=== PATIENT | male | born 1995 | race Caucasian/White ===

== ENCOUNTER 2020-04-12 16:47 | Observation (INO) | payer BC, SELFPAY ==
[2020-04-12] VITALS (8 sets, daily range): BP systolic 120–138; BP diastolic 64–81; PULSE 62–114; RESP 12–20; TEMP 36.8–37.4; O2SAT 95–99; BMI 24.5; BMI 22.1
--- NOTE | 2020-04-12 17:51 | CT_ITS ---
STUDY: CT BRAIN WITHOUT CONTRAST REASON FOR EXAM: Male, 24 years old. SEIZURE TODAY, STILL UNABLE TO RESPOND TO STIMULI RADIATION DOSAGE (If Supplied By Facility): CTDIvol = ( 44.99 ) mGy, DLP = ( 762.36 ) mGycm TECHNIQUE: Transaxial CT imaging of the brain was performed without administration of intravenous contrast material. Individualized dose optimization techniques were used for this CT. COMPARISON: No relevant priors. FINDINGS: Normal soft tissue structures. Normal calvarium. Normal size ventricles and extra-axial spaces for the patient''s age. Normal white matter tracts of the cerebral hemispheres. Normal basal ganglia and thalami. Normal brainstem. Normal cerebellum. There is no intracranial hemorrhage. There are no findings of an acute ischemic infarction. Normal visualized paranasal sinuses. CT/Brain/Head without Contrast IMPRESSION: Normal unenhanced CT scan of the brain. Electronically Signed: Jonathan Donaldson MD at 18:29 EDT , Service support ,
[2020-04-12] MEDS: levETIRAcetam IV 1,000 MG/100 ML BAG 400 MG IV (17:55)
[2020-04-12] MEDS: LORazepam 2 MG/ML Syringe IV (17:56)
[2020-04-12] MEDS: DiphenhydrAMINE 50 MG/ML Syringe 25 MG IV (17:56)
[2020-04-12] MEDS: 0.9% Normal Saline 1,000 ML 1000 ML IV (17:56)
[2020-04-12 18:05] LABS: Absolute Lymphocyte Count 1.97 X10^3/uL (0.83-4.51); Absolute Neutrophil Count 9.7 X10^3/uL (2.0-7.7); Basophil# 0.04 X10^3/uL; Basophil% 0.3 % (0-1); Eosinophil# 0.04 X10^3/uL; Eosinophils% 0.3 % (0-5); Hematocrit 42.8 % (40-54); Hemoglobin 15.2 g/dL (13.0-16.5); Lymphocyte # 1.97 X10^3/ul (4.0); Lymphocyte % 15.4 % (19-41); Mean Corp Hgb Conc 35.5 g/dL (32-36); Mean Corpuscular Hgb 31.1 pg (27.0-32.0); Mean Corpuscular Volume 87.5 fL (80-94); Mean Platelet Vol. 9.9 fl (6.2-12.0); Monocyte# 1.05 X10^3/uL; Monocyte% 8.2 % (0-10); NRBC Flagged by Analyzer 0 % (0-5); Neutrophil # 9.69 X10^3/uL (2.7-7.7); Neutrophil % 75.6 % (47-70); Platelet Count 305 K/mm3 (150-450); RBC Distribution Width CV 11.9 % (11.6-14.6); RBC Distribution Width SD 37.8 fl (35.1-43.9); Red Blood Count 4.89 M/mm3 (4.6-6.2); White Blood Count 12.8 K/mm3 (4.4-11.0)
[2020-04-12 18:13] LABS: ALB/GLOB Ratio 1.6 RATIO (0.9-2.4); AST(SGOT) 21 U/L (15-37); Alanine Aminotransfer ALT/SGPT 34 U/L (16-61); Alkaline Phosphatase 75 U/L (45-117); Anion Gap 8 (5-15); BUN 13 mg/dL (7-18); BUN/Creat Ratio 11.9 RATIO (10-20); Calcium,Total 9.7 mg/dL (8.5-10.1); Chloride 109 mmol/L (98-107); Creatinine, Serum 1.09 mg/dL (0.70-1.30); EST Glomerular Filtration Rate 89 mL/min (>60); Est Glom Filt Rate - Afr Amer 107 mL/min (>60); Estimated Creatinine Clearance 115.69 ml/min; Globulin 3.1 g/dL (2.2-4.2); Glucose 95 mg/dL (74-106); Potassium 3.9 mmol/L (3.5-5.1); Prolactin 17.4 ng/mL; Protein, Total 8.1 g/dL (6.4-8.2); Sodium Level 142 mmol/L (136-145)
[2020-04-12 18:18] LABS: CPK Total, Creatine Kinase 286 U/L (39-308)
[2020-04-12 18:46] LABS: Lactic Acid 2.9 mmol/L (0.4-1.9)
--- NOTE | 2020-04-12 19:02 | ED.DCSUM_ITS ---
- ER Visit Summary Date of Service: 04/12/20 Chief Complaint: Possible seizure History of Present Illness: The patient is a 24 M who presents with possible seizure that occurred today. Patient was working outside when his coworkers noted he was having a seizure. Patient does not remember any of the events around the seizure. Patient was slow to respond. EMS states that the patient was nonverbal on their initial evaluation. Patient does admit to a generalized headache. Patient denies any recent fevers or chills. Patient admits to nausea but denies any vomiting. Patient admits to some neck pain but denies any back pain. Patient states he feels weak all over. Physical Examination: Vital signs are stable. Patient is afebrile. Patient is in no acute distress. Oral mucosa is pink and moist. There is no evidence of tongue biting. Neck is supple. Trachea is midline. There is no JVD. Heart was regular rate and rhythm. Lungs are clear and equal bilaterally. Abdomen is soft. Bowel sounds are normal. There is no tenderness. Cranial nerves II through XII are intact. There are no focal motor or sensory deficits. Extremities are intact. There is no calf tenderness or edema. Test Results: CT scan of the brain was obtained. There is no acute intracranial abnormality. CBC shows a slight leukocytosis of 12.8. Comprehensive metabolic profile was normal. Lactate was slightly elevated at 2.9. While the patient was having a seizure, a prolactin level was obtained and was at the upper limit of normal at 17.4. Emergency Department Course and Treatment: While here in the emergency departmen t patient had a generalized tonic-clonic seizure. Patient's arms and legs were shaking and then would slow down and then started shaking again. Family was at the bedside was able to hold his right arm down while his legs were still shaking. Patient was given Ativan, Benadryl, and Keppra. Patient stopped his seizure after approximately 4 to 5 minutes. Case was discussed with the hospitalist. He will admit the patient for observation. He requested that a urine drug screen be obtained. This was ordered. Patient and family understood and were agreeable with the plan. All questions were answered. Disposition: Admit to hospital Impression: New onset seizure This note was generated with CEL-[employer]ation software. It may contain incorrect words, spelling, and punctuation that were not noted in review of the chart prior to signing ED Disposition - Plan for ED Patient: Disposition: Acute Care Hospital [facility] Diagnosis: New onset seizure Referrals: Care Physician,No Primary [Primary Care Provider] -
--- NOTE | 2020-04-12 20:08 | PCM.HP.STD ---
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 Per report his coworkers observed him to be seizing on the ground at work and they called for help. The patient has no previous seizure history or brain trauma. In the emergency room he was observed to have a tonic-clonic seizure with duration of 4 to 5 minutes by the ER physician at which time a prolactin level was obtained. The patient was given Ativan, Keppra and Benadryl at that time and the seizure stopped. Laboratory studies reveal a white blood cell count of 12.8, hemoglobin 15.2, hematocrit 42.8, platelets 305, sodium 142, potassium 3.9, chloride 25, bicarb 8, BUN 13, creatinine 1.09, lactate elevated at 2.9, prolactin in the high end of normal at 17.4. The patient is afebrile and resting comfortably but is slow to respond to questions and therefore ER physician has requested admission for observation overnight. Past Medical History Allergies TIDE Allergy (Uncoded 04/12/20 16:53) Rash Home Medications: Ambulatory Orders Medication Instructions Recorded NK 04/12/20 Smoking Status: Never smoker - *Family History Maternal History Items: No pertinent history Review of Systems Constitutional: Denies: Chills, Fever, Weight Change HEENT: Denies: Head Aches, Sinus Congestion, Sinus Drainage Cardiovascular: Denies: Chest Pain, Palpitations Respiratory: Denies: Cough, Shortness of breath at rest, Sputum production Gastrointestinal: Denies: Abdominal Pain, Nausea, Vomiting Genitourinary: Denies: Dysuria Musculoskeletal: Denies: Joint Pain, Joint Tenderness Skin: Denies: Rash, Wounds Neurological: Reports: Numbness - bilat hands, Seizures. Denies: Focal weakness, Tingling Psychiatric: Denies: Anxiety, Depression, Homicidal Ideations, Suicidal Ideations Hematologic/ Lymphatic: Denies: Easy Bruising, Easy Bleeding VTE Information - Inpt Only VTE Present on Admission: No VTE Mechan Device Prophylaxis: None VTE Pharm Prophylaxis ordered?: Yes Patient Problems: Active and Suspected Problems New onset seizure (Acute) New onset seizure (Acute) - Physical Exam Vitals/I&O's: Vital Signs Temp Pulse Resp BP Pulse Ox 98.3 F 98 12 138/67 H 95 04/12/20 16:49 04/12/20 19:16 04/12/20 19:16 04/12/20 19:16 04/12/20 19:16 Oxygen Delivery Method Room Air Weight: 180 lb 12.465 oz Body Mass Index (BMI) 24.5 Intake and Output for Last 24 Hours 04/10/20 04/11/20 04/12/20 23:59 23:59 23:59 Intake Total 1066.67 / 1066.67 Balance 1066.67 / 1066.67 General: Alert, Cooperative, Confused HEENT: Atraumatic, EOMI, Normocephalic, Sluggish Pupils Neck: Supple Lungs: Clear to auscultation, Normal air movement, No rhonchi, No wheeze, No rales Cardiovascular: Regular rate, Normal S1, Normal S2, No murmurs Abdomen: Bowel Sounds Present, Soft, Non Tender Extremities: No edema Skin: No rashes Musculoskeletal: No Tenderness to Palpation of Joints or Extremities Neurological: Neuro grossly intact Psych/Mental Status: Normal Affect, Appropriate Laboratory Results 04/12/20 16:56: WBC 12.8 H, RBC 4.89, Hgb 15.2, Hct 42.8, MCV 87.5, MCH 31.1, MCHC 35.5, RDW Std Deviation 37.8, RDW Coeff of Michi 11.9, Plt Count 305, MPV 9.9, Immature Gran % (Auto) 0.200, Neut % (Auto) 75.6 H, Lymph % (Auto) 15.4 L, [place] % (Auto) 8.2, Eos % (Auto) 0.3, Baso % (Auto) 0.3, Absolute Neuts (auto) 9.7 H, Absolute Lymphs (auto) 1.97, Nucleated RBC % 0 04/12/20 16:56: Total Creatine Kinase 286 04/12/20 17:50: Sodium 142, Potassium 3.9, Chloride 109 H, Carbon Dioxide 25.0, Anion Gap 8, BUN 13, Creatinine 1.09, Estim Creat Clear Calc 115.69, Est GFR (MDRD) Af Amer 107, Est GFR (MDRD) Non-Af 89, BUN/Creatinine Ratio 11.9, Glucose 95, Calcium 9.7, Total Bilirubin 0.90, AST 21, ALT 34, Alkaline Phosphatase 75, Total Protein 8.1, Albumin 5.0, Globulin 3.1, Albumin/Globulin Ratio 1.6, Prolactin 17.4 04/12/20 18:04: Lactic Acid 2.9 H* Assessment/Plan All Active Problems New onset seizure (Acute) New onset seizure (Acute) Plan 1. New onset seizure?admit patient to progressive care unit, neuro checks every 4 hours, IV normal saline at 125 cc/h, repeat BMP and CBC in the a.m. Consider neurological consultation should further seizures occur, urine tox screen is pending at the time of admission. I suspect that the elevated temperatures outdoors today with hard labor played a role in this patient's presentation. Should no further episodes occur then it would be reasonable to discharge the patient to follow-up with primary care. 2. DVT prophylaxis?low molecular weight heparin OBSV E&M: 24288 Initial observation care L2
[2020-04-12 20:23] LABS: Bacteria 0 SEEN /hpf (None Seen); Mucous, Urine 0 SEEN /hpf (<or=2+); Red Blood Cells-Urine 0 SEEN /hpf (0-5); Squamous Epithelial Cells - UA 0 SEEN /hpf (0-5); White Blood Cells 0 SEEN /hpf (0-5)
[2020-04-12 20:29] LABS: Color, Urine Yellow (Yellow); Glucose, Dipstick Normal (Normal); Ketone-Dipstick 15 mg/dl (Negative); Leukocyte Esterase-Dipstick Negative /ul (Negative); Nitrite-Dipstick Negative (Negative); Occult Blood-Urine 10 /ul (Negative); Protein-Dipstick 15 mg/dl (Negative); Urine Bilirubin Dipstick Negative (Negative); Urine Clarity Clear (Clear); Urine Urobilinogen 1 mg/dl (Normal)
[2020-04-12 20:39] LABS: Calcium Oxalate Crystals Ur RARE /hpf (<or=2+)
[2020-04-12 20:43] LABS: Amphetamine Urine VISTA NEGATIVE (<1000 ng/mL); Barbiturate Urine VISTA NEGATIVE (< 200 ng/mL); Benzodiazepine Urine VISTA POSITIVE (< 200 ng/mL); Cocaine Urine VISTA NEGATIVE (< 300 ng/mL); Ecstacy Urine VISTA NEGATIVE (< 500 ng/mL); Methadone Urine VISTA NEGATIVE (< 300 ng/mL); PCP Urine VISTA NEGATIVE (< 25 ng/mL); THC Urine VISTA NEGATIVE (< 50 ng/mL); Vista UDS pH Range 6
[2020-04-12] MEDS: 0.9% Normal Saline 1,000 ML 125 ML IV (21:09)
[2020-04-12] MEDS: 0.9% Saline Lock 10 ML Syringe IV (21:09)
[2020-04-12 22:10] LABS: Reflex Lactate? Y
[2020-04-12 22:55] LABS: Lactic Acid 0.9 mmol/L (0.4-1.9)
[2020-04-12] MEDS: Acetaminophen 325 MG Tablet 650 MG PO (23:07)
[2020-04-13] VITALS (9 sets, daily range): BP systolic 102–125; BP diastolic 54–62; PULSE 50–105; RESP 12–16; TEMP 36.6–36.8; O2SAT 95–98
[2020-04-13] MEDS: 0.9% Normal Saline 1,000 ML 125 ML IV ×3 (05:14→21:15)
[2020-04-13 06:55] LABS: Absolute Lymphocyte Count 2.63 X10^3/uL (0.83-4.51); Absolute Neutrophil Count 4.2 X10^3/uL (2.0-7.7); Basophil# 0.05 X10^3/uL; Basophil% 0.6 % (0-1); Eosinophil# 0.12 X10^3/uL; Eosinophils% 1.5 % (0-5); Hematocrit 39.9 % (40-54); Hemoglobin 13.7 g/dL (13.0-16.5); Lymphocyte # 2.63 X10^3/ul (4.0); Lymphocyte % 33.1 % (19-41); Mean Corp Hgb Conc 34.3 g/dL (32-36); Mean Corpuscular Hgb 30.9 pg (27.0-32.0); Mean Corpuscular Volume 89.9 fL (80-94); Mean Platelet Vol. 9.7 fl (6.2-12.0); Monocyte# 0.89 X10^3/uL; Monocyte% 11.2 % (0-10); NRBC Flagged by Analyzer 0 % (0-5); Neutrophil # 4.24 X10^3/uL (2.7-7.7); Neutrophil % 53.5 % (47-70); Platelet Count 266 K/mm3 (150-450); RBC Distribution Width SD 39.2 fl (35.1-43.9); Red Blood Count 4.44 M/mm3 (4.6-6.2); White Blood Count 7.9 K/mm3 (4.4-11.0)
[2020-04-13 07:30] LABS: Anion Gap 6 (5-15); BUN 11 mg/dL (7-18); BUN/Creat Ratio 15.1 RATIO (10-20); Calcium,Total 8.5 mg/dL (8.5-10.1); Chloride 109 mmol/L (98-107); Creatinine, Serum 0.73 mg/dL (0.70-1.30); EST Glomerular Filtration Rate 141 mL/min (>60); Est Glom Filt Rate - Afr Amer 170 mL/min (>60); Estimated Creatinine Clearance 164.73 ml/min; Glucose 84 mg/dL (74-106); Potassium 3.8 mmol/L (3.5-5.1); Sodium Level 139 mmol/L (136-145)
--- NOTE | 2020-04-13 09:45 | EKG12_ITS ---
Test Reason : ARRYTH Blood Pressure : / mmHG Vent. Rate : 059 BPM Atrial Rate : 059 BPM P-R Int : 152 ms QRS Dur : 114 ms QT Int : 424 ms P-R-T Axes : -79 029 022 degrees QTc Int : 419 ms Unusual P axis, possible ectopic atrial bradycardia Abnormal ECG No previous ECGs available Confirmed by COLE ZURITA ([id number]), editor book NETO GARVEY ([id number]) on 04/16/2020 10:35:20 AM Referred By: Confirmed By:COLE ZURITA
--- NOTE | 2020-04-13 12:35 | TELEMED_ITS ---
[facility] Tele[facility] has confirmed receipt of a request for visit. This document confirms receipt of the order initiating the consult. To find the results of the consultation, please view the patient's reports for the scanned Telemed Consult.
--- NOTE | 2020-04-13 12:35 | MRI_ITS ---
STUDY: MRI BRAIN WITH AND WITHOUT CONTRAST REASON FOR EXAM: Male, 24 years old. New onset of seizure TECHNIQUE: Standardized multiplanar fat and water weighted pulse sequences were obtained. 15ml Dotarem via IV was administered for the contrast portion of the examination. COMPARISON: None. FINDINGS: No restricted diffusion to suspect acute or subacute ischemic infarct. No focal signal abnormalities throughout the brain parenchyma. All of the pulse sequences are normal. Thin sections through the limbic lobes are normal and symmetrical. No focal signal abnormalities of the hippocampus and parahippocampus. Normal size of the ventricles and extra-axial spaces for the patient''s age. Normal white matter tracts of the supratentorial brain. Normal bilateral basal ganglia. Normal thalami. There is no extra-axial fluid accumulation. Normal flow voids within the major intracranial circulation suggesting patency by spin echo criteria. Normal venous enhancement. There is no enhancing intra-axial or extra-axial abnormality. Normal sella turcica, pituitary gland, infundibular stalk, optic chiasm and hypothalamus. Normal tectal plate and pineal gland. Normal midbrain, hany and medulla. Normal cerebellum. Normal basal cisterns. Normal bilateral temporal bones. Normal bilateral internal auditory canals. No demonstrated orbital abnormality, within the constraints of a routine brain study. Normal visualized paranasal sinuses. Normal calvarium and skull base. Normal visualized soft tissue structures. Normal visualized upper cervical spine. MRI/Brain W/WO Contrast IMPRESSION: Normal unenhanced and enhanced MRI of the brain. Electronically Signed: Max Garcia MD at 16:04 EDT , Service support ,
--- NOTE | 2020-04-13 12:39 | ECHOD_ITS ---
Reason For Study: Arrhythmia Procedure This was a 2D Doppler, Color Flow transthoracic echocardiogram. Exam performed portable in patient room. Left Ventricle Normal size and thickness. Apical false tendon noted. The estimated ejection fraction is 65 %. Normal diastology for age. No regional wall motion abnormalities noted. Right Ventricle Normal size and thickness. Normal systolic function. Atria Normal left atrium. Normal right atrium. Normal atrial septum. Mitral Valve The mitral valve is structurally normal. No prolapse or stenosis seen. Tricuspid Valve Normal tricuspid valve. Trivial tricuspid valve insufficiency. Right ventricular systolic pressure estimated to be 24 mmHg. Aortic Valve Trisinus/trileaflet aortic valve. Normal aortic valve. Pulmonic Valve Normal pulmonic valve. Great Vessels Normal aortic root. Normal arch. Normal inferior vena cava. Inferior vena cava collapse with sniff. Pericardium/Pleural No pericardial effusion. MMode/2D Measurements & Calculations LVIDd: 5.0 cm IVSd: 0.99 cm LA dimension: 3.3 cm LVIDs: 3.1 cm LVPWd: 0.96 cm FS: 38.0 % LAV(MOD-bp): 42.8 ml LA A4 area: 16.2 cm2 RA A4 area: 14.0 cm2 LAV(MOD-bp) Indexed: 21.9 ml/m2 LAV(MOD-sp2): 41.9 ml LAV(MOD-sp4): 36.8 ml Time Measurements MV dec time: 0.24 sec Doppler Measurements & Calculations MV E max chuck: 118.6 cm/sec Lat Peak E' Chuck: 18.9 cm/sec Med Peak E' Chuck: 13.2 cm/sec MV A max chuck: 37.2 cm/sec E/E' lat: 6.3 E/E' med: 9.0 MV E/A: 3.2 MV V2 max: 110.7 cm/sec MV P1/2t max chuck: 110.7 cm/sec Ao V2 max: 115.6 cm/sec MV max P.9 mmHg MV P1/2t: 98.2 msec Ao max P.3 mmHg MV V2 mean: 56.7 cm/sec MV dec slope: 330.5 cm/sec2 Ao V2 mean: 77.0 cm/sec MV mean P.6 mmHg MVA(P1/2t): 2.2 cm2 Ao mean P.7 mmHg MV V2 VTI: 35.6 cm Ao V2 VTI: 28.6 cm LV V1 max: 102.3 cm/sec PA V2 max: 90.5 cm/sec TR max chuck: 219.1 cm/sec LV V1 max P.2 mmHg TR max P.2 mmHg LV V1 mean P.2 mmHg LV V1 mean: 70.0 cm/sec LV V1 VTI: 25.0 cm Interpretation Summary The estimated ejection fraction is 65 %. Normal diastology for age. Trivial tricuspid valve insufficiency. Right ventricular systolic pressure estimated to be 24 mmHg. There is no comparison study available. Ordering Physician: Albina Carey Referring Physician: no PCP Performed By: Garth Kirkpatrick RCS
--- NOTE | 2020-04-13 12:41 | PN_ITS ---
Patient Problems: Active and Suspected Problems New onset seizure (Acute) New onset seizure (Acute) Subjective: Feels okay today. No further seizures. 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 States that before his seizure occurred he couldn't hear or see well and felt like he was in a tunnel. There is no personal or family history of seizures. Has been having GALINDO over the last 8 mos. States that his chiropractor told him it was related to his neck. States that they feel like pressure behind his eyes and his eyes are very sensitive to light when they occur. No associated nausea/vomiting. Also reports a h/o RA but hasn't seen a doctor for this in a long time. Vitals/I&O's: Vital Signs Temp Pulse Resp BP Pulse Ox 98.1 F 61 14 107/54 L 98 04/13/20 09:20 04/13/20 09:20 04/13/20 09:20 04/13/20 09:20 04/13/20 09:20 Oxygen Delivery Method Room Air Weight: 74 kg Body Mass Index (BMI) 22.1 Intake and Output for Last 24 Hours 04/11/20 04/12/20 04/13/20 23:59 23:59 23:59 Intake Total 1306.67 / 1306.67 2398.75 / 2398.75 Balance 1306.67 / 1306.67 2398.75 / 2398.75 General: Alert, Oriented x3, Cooperative, No apparent distress, Well developed, Well nourished, - - Young WM sitting up in bed, mother at bedside, pleasant HEENT: Atraumatic, EOMI, Normocephalic, EAC Clear Oral: Moist Mucosa, No Gingival or Mucosal Lesions/ Ulcerations, - - good dentition Neck: Supple, No JVD, Negative Carotid Bruits, Negative Hepatojugular Reflux, No Nodes, No Nuchal Rigidity, Trachea Midline, Thyroid Normal Size and Texture Lungs: Clear to auscultation, Normal air movement, No rhonchi, No wheeze, No rales Cardiovascular: Regular rate, Regular Rhythm, Normal S1, Normal S2, No murmurs, No Ectopic Activity, No rub noted, No Gallop Abdomen: Bowel Sounds Present, Soft, Non Tender, Non-Distended, No Hepato- splenomegaly, No hernias noted Extremities: No clubbing, No cyanosis, No edema, Capillary Refill Less than 3 Seconds, Peripheral Pulses Normal Skin: No rashes, No breakdown Musculoskeletal: No Tenderness to Palpation of Joints or Extremities, No Muscle Wasting Lymphatic: No Cervical, Supraclavicular, or Inguinal Adenopathy Neurological: Cranial nerves II-XII grossly intact, Neuro grossly intact, Motor Exam 5/5 strength throughout, Muscle tone normal, Sensory exam intact to light touch and pain, Coordination normal, - - brisk B LE reflexes 3+ Laboratory Results 04/12/20 16:56: WBC 12.8 H, RBC 4.89, Hgb 15.2, Hct 42.8, MCV 87.5, MCH 31.1, MCHC 35.5, RDW Std Deviation 37.8, RDW Coeff of Michi 11.9, Plt Count 305, MPV 9.9, Immature Gran % (Auto) 0.200, Neut % (Auto) 75.6 H, Lymph % (Auto) 15.4 L, [place] % (Auto) 8.2, Eos % (Auto) 0.3, Baso % (Auto) 0.3, Absolute Neuts (auto) 9.7 H, Absolute Lymphs (auto) 1.97, Nucleated RBC % 0 04/12/20 16:56: Total Creatine Kinase 286 04/12/20 17:50: Sodium 142, Potassium 3.9, Chloride 109 H, Carbon Dioxide 25.0, Anion Gap 8, BUN 13, Creatinine 1.09, Estim Creat Clear Calc 115.69, Est GFR (MDRD) Af Amer 107, Est GFR (MDRD) Non-Af 89, BUN/Creatinine Ratio 11.9, Glucose 95, Calcium 9.7, Total Bilirubin 0.90, AST 21, ALT 34, Alkaline Phosphatase 75, Total Protein 8.1, Albumin 5.0, Globulin 3.1, Albumin/Globulin Ratio 1.6, Prolactin 17.4 04/12/20 18:04: Lactic Acid 2.9 H* 04/12/20 20:20: Urine Color Yellow, Urine Clarity Clear, Urine pH 6.0, Ur Specific [place] 1.020, Urine Protein 15 H, Urine Glucose (UA) Normal, Urine Ketones 15 H, Urine Occult Blood 10 H, Urine Nitrite Negative, Urine Bilirubin Negative, Urine Urobilinogen 1 H, Ur Leukocyte Esterase Negative, Urine RBC 0 SEEN, Urine WBC 0 SEEN, Ur Squamous Epith Cells 0 SEEN, Calcium Oxalate Crystal RARE, Urine Bacteria 0 SEEN, Urine Mucus 0 SEEN 04/12/20 20:20: Urine Opiates Screen NEGATIVE, Urine Methadone Screen NEGATIVE, Ur Barbiturates Screen NEGATIVE, Ur Phencyclidine Scrn NEGATIVE, Ur Amphetamines Screen NEGATIVE, U Methamphetamin-MDMA NEGATIVE, U Benzodiazepines Scrn POSITIVE H, Urine Cocaine Screen NEGATIVE, U Cannabinoids Screen NEGATIVE, Ur Drug Screen Comment 04/12/20 22:08: Lactic Acid 0.9 04/13/20 06:05: WBC 7.9, RBC 4.44 L, Hgb 13.7, Hct 39.9 L, MCV 89.9, MCH 30.9, MCHC 34.3, RDW Std Deviation 39.2, RDW Coeff of Michi 12.0, Plt Count 266, MPV 9.7, Immature Gran % (Auto) 0.100, Neut % (Auto) 53.5, Lymph % (Auto) 33.1, [place] % (Auto) 11.2 H, Eos % (Auto) 1.5, Baso % (Auto) 0.6, Absolute Neuts (auto) 4.2, Absolute Lymphs (auto) 2.63, Nucleated RBC % 0 04/13/20 06:05: Sodium 139, Potassium 3.8, Chloride 109 H, Carbon Dioxide 24.0, Anion Gap 6, BUN 11, Creatinine 0.73, Estim Creat Clear Calc 164.73, Est GFR (MDRD) Af Amer 170, Est GFR (MDRD) Non-Af 141, BUN/Creatinine Ratio 15.1, Glucose 84, Calcium 8.5 Current Medications Acetaminophen (Tylenol) 650 mg PO Q6H PRN PRN PRN Reason: Pain Score 1-06/12 Last Admin: 04/12/20 23:07 Dose: 650 mg Documented by: Enoxaparin Sodium (Lovenox) 40 mg SC DAILY [facility] Last Admin: 04/13/20 12:34 Dose: Not Given Documented by: Sodium Chloride () 1,000 mls @ 125 mls/hr IV .Q8H [facility] Last Admin: 04/13/20 12:35 Dose: 125 mls/hr Documented by: Iopamidol (Contrast Allergy Check) 0 ml IV X1 ISAAC Levetiracetam (Keppra Tablet) 1,000 mg PO BID ISAAC Lorazepam (Ativan) 0.5 mg IV X1 PRN PRN Reason: SEIZURES Sodium Chloride () 10 - 40 ml IV UD PRN PRN Reason: SALINE FLUSH Last Admin: 04/12/20 21:09 Dose: 10 ml Documented by: STROKE Vital Signs/Narrative: Vital Signs Temp Pulse Resp BP Pulse Ox 04/13/20 09:20 98.1 F 61 14 107/54 L 98 Medical Necessity - Tobacco Use Smoking Status: Never smoker Tobacco Use: Non-smoker Assessment/Plan All Active Problems New onset seizure (Acute) New onset seizure (Acute) New Onset Seizures -2 seizures yesterday -was given a Keppra load in ED and Ativan -one was witnessed in ED and was 4-5 min in duration -Keppra not continued since -restart with PO at 1000 BID -consult SOS Neurology -Check EEG -Check MRI -CT head in ED was WNL Lactic Acidosis -suspect related to seizure -resolved Junctional Bradycardia -K 3.8--> will give K 20 mEq today -check mag -get ECHO and if re occurs consider cardiology consult Leukocytosis -likely reactive -resolved H/O RA -not receiving any current therapy and has not seen a automotive tire technician recently GALINDO -has been having over the last 8 mos -MRI pending for seizures DVT Prophylaxis -Lovenox Code Status -Full Inpatient E&M: [id number] [facility] L3
[2020-04-13] MEDS: levETIRAcetam 1,000 MG Tablet 1000 MG PO ×2 (14:34→21:16)
[2020-04-14] VITALS (8 sets, daily range): BP systolic 107–118; BP diastolic 59–69; PULSE 42–76; RESP 16; TEMP 36.6–36.8; O2SAT 97–99
[2020-04-14] MEDS: 0.9% Normal Saline 1,000 ML 125 ML IV (05:18)
[2020-04-14 06:25] LABS: Absolute Lymphocyte Count 2.63 X10^3/uL (0.83-4.51); Absolute Neutrophil Count 3.9 X10^3/uL (2.0-7.7); Basophil# 0.04 X10^3/uL; Basophil% 0.5 % (0-1); Eosinophil# 0.14 X10^3/uL; Eosinophils% 1.9 % (0-5); Hematocrit 40.4 % (40-54); Hemoglobin 13.6 g/dL (13.0-16.5); Lymphocyte # 2.63 X10^3/ul (4.0); Lymphocyte % 35.4 % (19-41); Mean Corp Hgb Conc 33.7 g/dL (32-36); Mean Corpuscular Hgb 30.5 pg (27.0-32.0); Mean Corpuscular Volume 90.6 fL (80-94); Mean Platelet Vol. 9.5 fl (6.2-12.0); Monocyte# 0.68 X10^3/uL; Monocyte% 9.2 % (0-10); NRBC Flagged by Analyzer 0 % (0-5); Neutrophil # 3.93 X10^3/uL (2.7-7.7); Neutrophil % 52.9 % (47-70); Platelet Count 253 K/mm3 (150-450); RBC Distribution Width CV 12.1 % (11.6-14.6); Red Blood Count 4.46 M/mm3 (4.6-6.2); White Blood Count 7.4 K/mm3 (4.4-11.0)
[2020-04-14 07:04] LABS: Anion Gap 0 (5-15); BUN 9 mg/dL (7-18); BUN/Creat Ratio 12.5 RATIO (10-20); Calcium,Total 8.5 mg/dL (8.5-10.1); Chloride 113 mmol/L (98-107); Creatinine, Serum 0.72 mg/dL (0.70-1.30); EST Glomerular Filtration Rate 143 mL/min (>60); Est Glom Filt Rate - Afr Amer 173 mL/min (>60); Estimated Creatinine Clearance 167.01 ml/min; Glucose 88 mg/dL (74-106); Magnesium 2.3 mg/dL (1.6-2.6); Potassium 4.2 mmol/L (3.5-5.1); Sodium Level 140 mmol/L (136-145); Thyroid Stim Hormone (TSH) 1.14 uIU/mL (0.358-3.74)
[2020-04-14] MEDS: levETIRAcetam 1,000 MG Tablet 1000 MG PO (08:46)
--- NOTE | 2020-04-14 12:22 | DCINST_ITS ---
- Discharge Diagnoses Current Active Problems: Current Active and Chronic Problems New onset seizure (Acute) New onset seizure (Acute) You will use the following diet at home:: No restrictions Your food should be the consistency of: Regular Your liquids should be the consistency of: Regular/Thin Discharge Activity: Return to Normal Activity Return to work on:: 04/19/20 May resume sexual activity in: No Restrictions Allergies/Adverse Reactions: Allergies TIDE Allergy (Uncoded 04/12/20 16:53) Rash Medications to take at Discharge Multivitamin 1 tab PO DAILY 04/12/20 Primary Care Physician: Care Physician,No Primary [Primary Care Provider] - Test Results: Test results from this visit will be discussed in further detail at your follow- up appointment, if applicable. Please Follow Up With: Jesus Walker When: 1-2 weeks call for appt soon [phone]
--- NOTE | 2020-04-14 12:26 | DS.PCM_ITS ---
Discharge Date and Diagnosis - Problem List Patient Problems: Active and Suspected Problems New onset seizure (Acute) New onset seizure (Acute) Date of Admission: 04/12/20 Date of Discharge: 04/14/20 - Primary Discharge Diagnosis Acute Problems: Active Problems New onset seizure (Acute) New onset seizure (Acute) Hospital Course and Treatment Imaging Results: TUDY: CT BRAIN WITHOUT CONTRAST REASON FOR EXAM: Male, 24 years old. SEIZURE TODAY, STILL UNABLE TO RESPOND TO STIMULI RADIATION DOSAGE (If Supplied By Facility): CTDIvol = ( 44.99 ) mGy, DLP = ( 762.36 ) mGycm TECHNIQUE: Transaxial CT imaging of the brain was performed without administration of intravenous contrast material. Individualized dose optimization techniques were used for this CT. COMPARISON: No relevant priors. FINDINGS: Normal soft tissue structures. Normal calvarium. Normal size ventricles and extra-axial spaces for the patient''s age. Normal white matter tracts of the cerebral hemispheres. Normal basal ganglia and thalami. Normal brainstem. Normal cerebellum. There is no intracranial hemorrhage. There are no findings of an acute ischemic infarction. Normal visualized paranasal sinuses. CT/Brain/Head without Contrast IMPRESSION: Normal unenhanced CT scan of the brain. Electronically Signed: Jonathan Donaldson MD at 18:29 EDT , Service support , STUDY: MRI BRAIN WITH AND WITHOUT CONTRAST REASON FOR EXAM: Male, 24 years old. New onset of seizure TECHNIQUE: Standardized multiplanar fat and water weighted pulse sequences were obtained. 15ml Dotarem via IV was administered for the contrast portion of the examination. COMPARISON: None. FINDINGS: No restricted diffusion to suspect acute or subacute ischemic infarct. No focal signal abnormalities throughout the brain parenchyma. All of the pulse sequences are normal. Thin sections through the limbic lobes are normal and symmetrical. No focal signal abnormalities of the hippocampus and parahippocampus. Normal size of the ventricles and extra-axial spaces for the patient''s age. Normal white matter tracts of the supratentorial brain. Normal bilateral basal ganglia. Normal thalami. There is no extra-axial fluid accumulation. Normal flow voids within the major intracranial circulation suggesting patency by spin echo criteria. Normal venous enhancement. There is no enhancing intra-axial or extra-axial abnormality. Normal sella turcica, pituitary gland, infundibular stalk, optic chiasm and hypothalamus. Normal tectal plate and pineal gland. Normal midbrain, hany and medulla. Normal cerebellum. Normal basal cisterns. Normal bilateral temporal bones. Normal bilateral internal auditory canals. No demonstrated orbital abnormality, within the constraints of a routine brain study. Normal visualized paranasal sinuses. Normal calvarium and skull base. Normal visualized soft tissue structures. Normal visualized upper cervical spine. MRI/Brain W/WO Contrast IMPRESSION: Normal unenhanced and enhanced MRI of the brain. Electronically Signed: Max Garcia MD at 16:04 EDT , Service support , ECHO EF 65% and otherwise WNL [facility] NEUROLOGY Operations: None Procedures: 2-D Echocardiogram Summary of Care Provided: Mr. 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 Per report his coworkers observed him to be shaking on the ground at work and they called for help. The patient has no previous seizure history or brain trauma. In the ED he was observed to have a tonic-clonic seizure with duration of 4 to 5 minutes by the ER physician. The patient was given Ativan, Keppra and Benadryl at that time and the seizure stopped. Laboratory studies reveal a white blood cell count of 12.8, hemoglobin 15.2, hematocrit 42.8, platelets 305, sodium 142, potassium 3.9, chloride 25, bicarb 8, BUN 13, creatinine 1.09, lactate elevated at 2.9, prolactin in the high end of normal at 17.4. An MRI and EEG were done and were both WNL. He was continue on Keppra during his stay. [facility] tele-neurology was consulted and the pt was evaluated by an epileptologist. She felt that this was not seizure activity and that he does not need any further AED's. She did suggest that he f/u with outpt neuro for completeness. And suspects that his event was most like related to dehydration and the heat. The pt has had no further events since admission. Pt was also noted to have intermittent junctional vs atopic SA node activity. ECHO was done and there are no structural heart abnormalities. It is felt that this is most likely 2/2 vagal tone given his age and the intermittent nature. He was asymptomatic as well. He was discharged home in stable condition. Patient Problems: Active and Suspected Problems New onset seizure (Acute) New onset seizure (Acute) - Physical Exam Vitals/I&O's: Vital Signs Temp Pulse Resp BP Pulse Ox 97.8 F 52 L 16 107/68 99 04/14/20 08:39 04/14/20 08:39 04/14/20 08:39 04/14/20 08:39 04/14/20 08:39 Oxygen Delivery Method Room Air Weight: 74 kg Body Mass Index (BMI) 22.1 Intake and Output for Last 24 Hours 04/12/20 04/13/20 04/14/20 23:59 23:59 23:59 Intake Total 1306.67 / 1306.67 4050.00 / 4050.00 1949 Balance 1306.67 / 1306.67 4050.00 / 4050.00 1949 General: Alert, Cooperative, No apparent distress, Well developed, Well nourished, - - young WM sitting up in bed, mother at bedside HEENT: Atraumatic, PERRLA, EOMI, Normocephalic, EAC Clear Oral: Moist Mucosa, No Gingival or Mucosal Lesions/ Ulcerations Neck: Supple, Trachea Midline Lungs: Clear to auscultation, Normal air movement, No rhonchi, No wheeze, No rales Cardiovascular: Regular rate, Regular Rhythm, Normal S1, Normal S2, No murmurs, No Ectopic Activity, No rub noted, No Gallop Abdomen: Bowel Sounds Present, Soft, Non Tender, Non-Distended, No hernias noted Extremities: No clubbing, No cyanosis, No edema, Peripheral Pulses Normal Skin: No rashes, No breakdown Musculoskeletal: No Tenderness to Palpation of Joints or Extremities, No Muscle Wasting Neurological: Neuro grossly intact Psych/Mental Status: Normal Affect, Appropriate, Alert and oriented to time, place, person, mood and affect Laboratory Results 04/14/20 06:05: Sodium 140, Potassium 4.2, Chloride 113 H, Carbon Dioxide 27.0, Anion Gap 0 L, BUN 9, Creatinine 0.72, Estim Creat Clear Calc 167.01, Est GFR (MDRD) Af Amer 173, Est GFR (MDRD) Non-Af 143, BUN/Creatinine Ratio 12.5, Glucose 88, Calcium 8.5, Magnesium 2.3, TSH 1.14 04/14/20 06:05: WBC 7.4, RBC 4.46 L, Hgb 13.6, Hct 40.4, MCV 90.6, MCH 30.5, MCHC 33.7, RDW Std Deviation 40.0, RDW Coeff of Michi 12.1, Plt Count 253, MPV 9.5, Immature Gran % (Auto) 0.100, Neut % (Auto) 52.9, Lymph % (Auto) 35.4, Polk % (Auto) 9.2, Eos % (Auto) 1.9, Baso % (Auto) 0.5, Absolute Neuts (auto) 3.9, Absolute Lymphs (auto) 2.63, Nucleated RBC % 0 Current Medications Acetaminophen (Tylenol) 650 mg PO Q6H PRN PRN PRN Reason: Pain Score 1-06/12 Last Admin: 04/12/20 23:07 Dose: 650 mg Documented by: Enoxaparin Sodium (Lovenox) 40 mg SC DAILY [facility] Last Admin: 04/14/20 10:35 Dose: Not Given Documented by: Sodium Chloride () 1,000 mls @ 125 mls/hr IV .Q8H [facility] Last Admin: 04/14/20 05:18 Dose: 125 mls/hr Documented by: Levetiracetam (Keppra Tablet) 1,000 mg PO BID [facility] Last Admin: 04/14/20 08:46 Dose: 1,000 mg Documented by: Lorazepam (Ativan) 0.5 mg IV X1 PRN PRN Reason: SEIZURES Sodium Chloride () 10 - 40 ml IV UD PRN PRN Reason: SALINE FLUSH Last Admin: 04/12/20 21:09 Dose: 10 ml Documented by: Discharge Activity: Return to Normal Activity Return to work on:: 04/19/20 May resume sexual activity in: No Restrictions Home Medications: Medications to take at Discharge Multivitamin 1 tab PO DAILY 04/12/20 Primary Care Physician: Care Physician,No Primary [Primary Care Provider] - Please Follow Up With: Jesus Walker When: 1-2 weeks call for appt [place] [phone] Medical Necessity - Tobacco Use Smoking Status: Never smoker Tobacco Use: Non-smoker Meaningful Use Info Meaningful Use Diagnoses (Choose all that apply): None applicable Inpatient E&M: 51704 Disch Hosp
--- NOTE | 2020-04-14 13:40 | PHA.DC.MR ---
Pharmacy Service has performed discharge medication reconciliation for this patient. The patient's discharge medication list was reviewed for discrepancies and discrepancies were resolved. Home Medications Multivitamin 1 tab PO DAILY 04/12/20
--- NOTE | 2020-04-14 13:47 | CASEMGMT ---
JAMEL RILEY NOTE: Pt being discharged. JAMEL RILEY to room to talk with pt. Pt confirms he does not have PCP. Pt given list of local PCP's. He denies other needs. Lynda PAREDESN JAMEL RILEY
== END 2020-04-14 12:25 | disposition home or self-care (01) ==
LOC: ED 19:55 → PCU 20:28
PROVIDERS: Admitting Provider Family Medicine; Emergency Provider Emergency Medicine; Visit Provider Internal Medicine
DX: R56.9 Unspecified convulsions (principal); M54.2 Cervicalgia; M06.9 Rheumatoid arthritis, unspecified; R00.1 Bradycardia, unspecified; E87.2 Acidosis; D72.829 Elevated white blood cell count, unspecified
CPT/HCPCS: 36415; 70450; 70553; 80048; 80053; 80307; 81001; 82550; 83605; 83735; 84146; 84443; 85025; 93005; 93306; 95819; 96361; 96374; 96375; 99218; 99285; A9575; J7030; A4216; G0378